=== PATIENT | female | born 1960 | race Caucasian/White ===

== ENCOUNTER 2017-12-03 13:36 | Observation (INO) | payer MEDICARE ==
[~2017-12-03] VITALS: Ht 162.6 cm; Wt 99.8 kg
[~2017-12-03 13:36] MED LIST: ACET1TAB25 PO; AMIT75TA2 PO; BRESALTEC PUFF; BUPR100T13 PO; HYDR-2132 PO; LOSA100T29 PO; RIVA10TA PO; SIMV40TA59 PO; ZOLP10TA6 PO
[2017-12-03 14:04] LABS: BASOPHILS % (AUTO) 0.4 % (0.0-5.0); EOSINOPHILS % (AUTO) 1.1 % (0.0-8.0); HEMATOCRIT 28.1 % (36-48); LYMPHOCYTES % (AUTO) 16.2 % (21.0-51.0); MEAN CORPUSCULAR HEMOGLOBIN 29.4 pg (27.0-33.0); MEAN CORPUSCULAR HGB CONC 34.2 g/dL (32.0-36.0); MEAN CORPUSCULAR VOLUME 85.9 fL (79-99); MONOCYTES % (AUTO) 7.1 % (3.0-13.0); NEUTROPHILS % (AUTO) 75.2 % (40.0-77.0); PLATELET COUNT (AUTO) 249 K/uL (130-400); RED BLOOD CELL COUNT(AUTO) 3.27 MIL/uL (4.00-5.50); RED CELL DISTRIBUTION WIDTH 15.4 % (11.0-15.5)
[2017-12-03 14:11] LABS: CREATININE 1.2 mg/dL (0.5-1.5); POTASSIUM 3.3 mmol/L (3.5-5.1)
[2017-12-03] MEDS ORDERED: SODIUM CHLORIDE 0.9% 1000ML 1,000 ML IV ONE (14:13)
[2017-12-03 14:16] LABS: ALBUMIN 2.8 g/dL (3.5-5.0); BILIRUBIN,TOTAL 0.3 mg/dL (0.2-1.0); TOTAL PROTEIN, SERUM 7.3 g/dL (6.0-8.3)
[2017-12-03 14:44] LABS: APPEARANCE,URINE CLEAR (CLEAR); BILIRUBIN,URINE NEGATIVE (NEGATIVE); COLOR,URINE YELLOW (YELLOW); GLUCOSE, URINE (UA) NEGATIVE (NEGATIVE); KETONES,URINE NEGATIVE (NEGATIVE); LEUKOCYTE ESTERASE ,URINE TRACE (NEGATIVE); NITRATE,URINE NEGATIVE (NEGATIVE); OCCULT BLOOD,URINE NEGATIVE (NEGATIVE); PROTEIN,URINE NEGATIVE (NEGATIVE); UROBILINOGEN,URINE 0.2 mg/dL (0.2-1.0)
[2017-12-03 14:50] LABS: AMPHET/METH SCREEN,URINE NEGATIVE (NEGATIVE); BARBITURATE SCREEN, URINE NEGATIVE (NEGATIVE); BENZODIAZEPINES SCREEN,URINE NEGATIVE (NEGATIVE); CANNABINOID SCREEN,URINE NEGATIVE (NEGATIVE); COCAINE SCREEN,URINE NEGATIVE (NEGATIVE); OPIATE SCREEN,URINE NEGATIVE (NEGATIVE); PHENCYCLIDINE SCREEN,URINE NEGATIVE (NEGATIVE)
[2017-12-03 14:58] LABS: ALCOHOL, BLOOD < 3 mg/dL (0-10)
[2017-12-03 14:59] LABS: CREATINE KINASE, TOTAL 626 U/L (21-232)
[2017-12-03 14:59] LABS: BACTERIA,URINE Rare /HPF (None Seen); RBC,URINE 0-1 /HPF (0-1); SQUAMOUS EPITHELIAL CELL,UR Rare /HPF (0-2)
[2017-12-03 19:50] VITALS: BP 90/50
[2017-12-03] MEDS ORDERED: LORAZEPAM 2 MG/ML 1 ML VIAL ONE (20:39)
[2017-12-03] MEDS ORDERED: LIDOCAINE HCL-MPF 1% 2ML VIAL IVP PRN ×2 (21:45)
[2017-12-03] MEDS ORDERED: POTASSIUM CHLORIDE 20 MEQ ERTAB PO PRN ×2 (21:45)
[2017-12-03] MEDS ORDERED: POTASSIUM CHLORIDE 20MEQ/100ML 100 ML IV PRN ×2 (21:45)
[2017-12-03] MEDS ORDERED: LORAZEPAM 2 MG/ML 1 ML VIAL IVP PRN (21:45)
[2017-12-03] MEDS ORDERED: POTASSIUM CHLORIDE 10% ELIXIR 20 MEQ/15 ML UDCUP PO PRN ×2 (21:45)
[2017-12-03] MEDS: NS-20 MEQ KCL 1000ML 1,000 ML IV SCH (22:26)
[2017-12-03 23:35] VITALS: BP 105/64
[2017-12-04 03:39] LABS: HEMATOCRIT 26.7 % (36-48); MEAN CORPUSCULAR HGB CONC 35.2 g/dL (32.0-36.0); MEAN CORPUSCULAR VOLUME 85.4 fL (79-99); PLATELET COUNT (AUTO) 244 K/uL (130-400); RED BLOOD CELL COUNT(AUTO) 3.12 MIL/uL (4.00-5.50); RED CELL DISTRIBUTION WIDTH 15.3 % (11.0-15.5); WHITE BLOOD COUNT (AUTO) 5.7 K/uL (4.8-10.8)
[2017-12-04 03:46] LABS: POTASSIUM 3.3 mmol/L (3.5-5.1)
[2017-12-04 08:00] VITALS: BP 117/67
[2017-12-04] MEDS ORDERED: FAMOTIDINE/PF 20 MG/2 ML VIAL IV SCH (09:00)
[2017-12-04] MEDS ORDERED: ENOXAPARIN SODIUM 40 MG/0.4 ML SYRINGE SQ SCH (09:00)
[2017-12-04 12:00] VITALS: BP_SYST 114; BP_SYST 125; BP_DIAS 72; BP_DIAS 74
[2017-12-04] MEDS: NS-20 MEQ KCL 1000ML 1,000 ML IV SCH (14:27)
[2017-12-04 16:00] VITALS: BP 144/76
[2017-12-04] MEDS ORDERED: GABA-531 PO (18:36)
[2017-12-04] MEDS ORDERED: AMIT75TA2 PO (18:36)
[2017-12-04] MEDS ORDERED: OMEP40CA37 PO (18:36)
[2017-12-04] MEDS ORDERED: SERT100T12 PO (18:36)
== END 2017-12-04 19:35 | disposition home or self-care (01) ==
LOC: EDH 13:36 → EDHIP 18:18 → 3AH 19:37
PROVIDERS: ADMIT Internal Medicine Nephrology; ATTEND Internal Medicine Nephrology
DX: T50.901A Poisoning by unspecified drugs, medicaments and biological substances, accidental (unintentional), initial encounter (principal); D64.9 Anemia, unspecified; E87.6 Hypokalemia; E66.9 Obesity, unspecified; I10 Essential (primary) hypertension; K21.9 Gastro-esophageal reflux disease without esophagitis; M19.90 Unspecified osteoarthritis, unspecified site; F31.60 Bipolar disorder, current episode mixed, unspecified; F60.7 Dependent personality disorder; Z96.653 Presence of artificial knee joint, bilateral; Z79.899 Other long term (current) drug therapy
CPT/HCPCS: 36415 ×2; 70450; 80048; 80053; 80305; 81001; 82140 ×2; 82550; 84484; 85025; 85027; 93005; 96365; 96366 ×2; 96372; 96375; 99285; G0378 ×25; G0480; J1650; J2060; J3480; J3490; J7030

== ENCOUNTER 2018-11-02 15:46 | Emergency (ER) | payer MEDICARE ==
[~2018-11-02 15:46] MED LIST changes: -ACET1TAB25 PO; -BRESALTEC PUFF; -BUPR100T13 PO; +GABA-531 PO; -HYDR-2132 PO; -LOSA100T29 PO; +LOSA100T58 PO; +OMEP40CA37 PO; -RIVA10TA PO; +SERT100T12 PO; -SIMV40TA59 PO
[2018-11-02 16:39] LABS: EOSINOPHILS % (AUTO) 0.8 % (0.0-8.0); HEMATOCRIT 39.1 % (36-48); LYMPHOCYTES % (AUTO) 20.5 % (21.0-51.0); MEAN CORPUSCULAR HEMOGLOBIN 30.8 pg (27.0-33.0); MEAN CORPUSCULAR HGB CONC 33.8 g/dL (32.0-36.0); MEAN CORPUSCULAR VOLUME 91.1 fL (79-99); MONOCYTES % (AUTO) 4.6 % (3.0-13.0); NEUTROPHILS % (AUTO) 73.1 % (40.0-77.0); NUCLEATED RED BLOOD CELLS 0.1 % (0.0-0.19); PLATELET COUNT (AUTO) 452 K/uL (130-400); RED BLOOD CELL COUNT(AUTO) 4.29 MIL/uL (4.00-5.50); RED CELL DISTRIBUTION WIDTH 13.2 % (11.0-15.5)
[2018-11-02 16:50] LABS: CREATININE 1.1 mg/dL (0.5-1.5); POTASSIUM 3.3 mmol/L (3.5-5.1)
[2018-11-02 16:52] LABS: INR 1.05 (0.85-1.15); PARTIAL THROMBOPLASTIN TIME 36.9 SEC (26.3-35.5)
[2018-11-02 16:55] LABS: ALBUMIN 3.3 g/dL (3.5-5.0); BILIRUBIN,TOTAL 0.3 mg/dL (0.2-1.0); TOTAL PROTEIN, SERUM 8.3 g/dL (6.0-8.3)
[2018-11-02] MEDS ORDERED: VANCOMYCIN 1GM+NS 250ML 250 ML IV ONE (18:01)
[2018-11-02 18:59] LABS: APPEARANCE,URINE Clear (CLEAR); BILIRUBIN,URINE Negative (NEGATIVE); COLOR,URINE Yellow (YELLOW); GLUCOSE, URINE (UA) Negative (NEGATIVE); KETONES,URINE Negative (NEGATIVE); LEUKOCYTE ESTERASE ,URINE Large (NEGATIVE); NITRATE,URINE Negative (NEGATIVE); OCCULT BLOOD,URINE Negative (NEGATIVE); PROTEIN,URINE Negative (NEGATIVE); UROBILINOGEN,URINE 0.2 mg/dL (0.2-1.0)
[2018-11-02 19:09] LABS: RBC,URINE 0-1 /HPF (0-1)
[2018-11-02 19:12] LABS: BACTERIA,URINE Rare /HPF (None Seen); SQUAMOUS EPITHELIAL CELL,UR Rare /HPF (0-2)
== END 2018-11-02 18:33 | disposition home or self-care (01) ==
LOC: EDH 15:46
DX: M71.22 Synovial cyst of popliteal space [Baker], left knee (principal); I10 Essential (primary) hypertension; E78.5 Hyperlipidemia, unspecified; K21.9 Gastro-esophageal reflux disease without esophagitis; F32.9 Major depressive disorder, single episode, unspecified; Z72.0 Tobacco use
CPT/HCPCS: 36415; 71045; 80053; 81001; 82948; 83605; 85025; 85610; 85730; 87040 ×2; 87804 ×2; 93005; 93971; 99284; J3370

== ENCOUNTER 2018-11-05 09:52 | Emergency (ER) | payer MEDICARE | END 2018-11-05 10:24 | disposition home or self-care (01) | LOC: EDH 09:52 | DX: M71.22 Synovial cyst of popliteal space [Baker], left knee (principal); I10 Essential (primary) hypertension; E78.5 Hyperlipidemia, unspecified; K21.9 Gastro-esophageal reflux disease without esophagitis; F32.9 Major depressive disorder, single episode, unspecified; Z90.710 Acquired absence of both cervix and uterus; Z87.891 Personal history of nicotine dependence | CPT/HCPCS: 99281 ==